=== PATIENT | male | born 1955 | race Caucasian/White ===

== ENCOUNTER 2024-03-04 05:49 | Inpatient (IN) ==
--- NOTE | 2024-03-04 06:06 | Emergency Department Note ---
Impression & Plan Chest pain, ST elevation myocardial infarction (STEMI) ED Provider Note ED Provider Note NAME: EDUIN NORIEGA AGE:68 SEX: Male : 1955 ARRIVES VIA: EMS INFORMANT: Patient ED PROVIDER(s): Angélica Amador DO CHIEF COMPLAINT: Chest pain HPI: This is a 68 yo male brought by EMS due to concern for chest pain. EMS concerned prehospital due to abnormal EKG reads additionally. VS stable enroute. On arrival patient c/o chest pain, dizziness, nausea, and vomited en route. He initially blamed this on "car sickness" and the nitro and ASA he was given by EMS. He denied sob. No prior similar episodes. He reported chest pain woke him up from sleep, no change with position or exertion, and otherwise nonradiating. No hx of heart problems. No hx of recent illness or fevers/chills. No recent GERD. PAST MEDICAL HISTORY:See Below PAST SURGICAL HISTORY:See Below FAMILY HISTORY:See Below SOCIAL HISTORY:See Below HOME MEDICATIONS:See Below ALLERGIES:See Below VITALS:See Below PHYSICAL EXAMINATION: GENERAL: alert, unwell appearing, well nourished, moderate distress, non-toxic EYE EXAM: normal conjunctiva, PERRL and EOM's grossly intact OROPHARYNX: no exudate, no erythema, lips, buccal mucosa, and tongue normal and mucous membranes are moist NECK: supple, no nuchal rigidity, no adenopathy, non-tender LUNGS: Clear to auscultation. Normal chest wall mechanics, no w/r/r, no reproducible pain with palpation HEART: no murmurs, S1 normal and S2 normal ABDOMEN: abdomen soft, non-tender, normo-active bowel sounds, no masses, no rebound or guarding. BACK: Back is symmetrical on inspection and there is no deformity, no midline tenderness, no CVA tenderness. SKIN: no rashes, petechiae, orbruising UPPER EXTREMITIES: upper extremities are grossly normal. FROM, nml pulses b/l. LOWER EXTREMITIES: No pitting edema. FROM, nml pulses b/l. NEURO EXAM: Normal sensorium, cranial nerves II-XII grossly intact, normal speech, no facial droop,nogross weakness of arms, no gross weakness of legs. Gross sensation intact. No ataxia. Vital Signs: reviewed and remarkable Differential Diagnosis: acute coronary syndrome, pericarditis, pulmonary embolus, aortic dissection, pneumonia, pneumothorax, musculoskeletal pain, shingles, GERD, GI bleed, as well as others were considered MEDICAL DECISION MAKING: THis is a 68 yo male who presents to the ER with concern for chest pain and abnormal EKG noted by EMS. Patient unwell appearing on arrival and had begun to vomit. EKG performed here with inferior ST elevated and reciprocal changes, HEART alert called. Labs drawn and sent, IV established, EKG and CXR performed and interpreted at bedside, and patient placed on telemetry. He was started on IVF and given IV pepcid, IV fentanyl and after discussion with Dr. Saldana given heparin and brilinta additionally. VS stable although patient noted to be bradycardic. Patient stated he does bike 10 miles daily and initial thought was bradycardia related to mildly to conditioning however bradycardia began to worsen and I suspect related to his evolving inferior [place]. His blood pressure remained stable while awaiting sugar laboratory assistant team. Dr. Saldana arrived at bedside to evaluate the patient and he was taken urgently to the sugar laboratory assistant. Consultation(s): 06: Discussed with Dr. Saldana via text after heart alert called. 06: Discussed with Dr. Saldana now at bedside. ER Treatment Provided: See below Diagnostics Interpreted By Me: -ECG: Sinus bradycardia at 55 with first-degree AV block, normal axis, normal intervals, appearance of [address] elevation in lead III and aVF with T wave inversions/ST depression noted in 1, aVL, V2, and V4 through V6; new compared to prior EKG from 2019 -Cardiac Monitoring: An order was placed for continuous cardiac monitoring. The monitor shows a rate of 48 with sinsu bradycardia rhythm. -Laboratory studies: As stated above and show below. -Imaging studies: X-ray Chest: A single view study of the chest was reviewed and was negative for cardiomegaly, focal infiltrate, effusion, pulmonary edema, or wide mediastinum. Triage Nursing Note Reviewed Prior/Outside Records Reviewed Critical Care: Critical care of 36min performed to assess and manage high likelihood of life- threatening ACS, involving labs and imaging performed with assessment to evaluate chest pain diagnosis with frequent reassessment. This time includes bedside time, treatment discussions with patient/family/consultants, documentation time and excludes procedure time. Past Med/Surg History Problem List (Updated 03/04/24 @ 12:58 by Raymond Walker MD) Urinary retention ST elevation myocardial infarction (STEMI) (Acute) Chest pain (Acute) Medical History (Updated 03/04/24 @ 12:58 by Raymond Walker MD) Asthma Hypothyroidism Surgical History (Updated 03/04/24 @ 09:40 by Irina Rosales PA-C) H/O adenoidectomy H/O prostatectomy Family History Other Heart disease Pancreatic cancer Social History Smoking Status: Never smoker Hx Alcohol Use: No Hx Substance Use: No Preferred Language: Yi Communication Ability: Effective Beef Grader Required: No Beliefs That Will Affect Care: None Current Living Situation: Spouse Feels Safe at Home: Yes Assistive Devices: None and Glasses Allergies Allergies Allergy/AdvReac Type Severity Reaction Status Date / Time No Known Allergies Allergy Mild Unverified 02/02/24 14:32 Home Meds Home Medications Medication Instructions Recorded Confirmed famotidine 20 mg tablet (Pepcid) 20 mg PO HS 03/04/24 03/04/24 fluticasone furoate 100 1 inh inhalation DAILY 03/04/24 03/04/24 mcg-vilanterol 25 mcg/dose inhalation powder (Breo Ellipta) pantoprazole 40 mg tablet,delayed 40 mg PO DAILY 03/04/24 03/04/24 release Results & Data (ED) Vital Signs Vital Signs - 24 hr 03/04/24 05:58 03/04/24 06:01 03/04/24 06:01 Temperature Source Oral Pulse Rate 58 L Pulse Rate from SpO2 Sensor Respiratory Rate Respiratory Effort / Characteristics Blood Pressure [Left Arm] 105/61 Blood Pressure Mean [Left Arm] 75 Pulse Oximetry Oxygen Delivery Method Oxygen Flow Rate Sepsis Recent Fever Within 48 Hours No Sepsis New/Unexplained Change in Mental Status No Sepsis Action Taken by Nursing No Action Required 03/04/24 06:06 03/04/24 06:07 03/04/24 06:22 Temperature Source Pulse Rate 53 L Pulse Rate from SpO2 Sensor 54 L Respiratory Rate 20 Respiratory Effort / Characteristics Short of Breath SOB on Exertion Blood Pressure [Left Arm] Blood Pressure Mean [Left Arm] Pulse Oximetry 99 99 Oxygen Delivery Method Nasal Cannula Oxygen Flow Rate 1 Sepsis Recent Fever Within 48 Hours Sepsis New/Unexplained Change in Mental Status Sepsis Action Taken by Nursing Laboratory Data 03/05/24 03:08 03/05/24 03:08 Lab Results 03/04/24 03/04/24 03/04/24 Range/Units 05:45 06:00 06:55 WBC 8.73 (4.8-10.8) K/ul RBC 4.37 L (4.70-6.10) M/uL Hgb 13.5 L (14.0-18.0) g/dl Hct 39.5 L (42.0-52.0) % MCV 90.4 (80.0-100.0) fL MCH 30.9 (25.0-34.0) pg MCHC 34.2 (32.0-36.0) g/dL RDW Std Deviation 39.4 (36.4-46.3) fL RDW Coeff of Nadine 11.9 (11.5-14.5) % Plt Count 250 (130-400) K/uL MPV 10.3 (9.4-12.4) fL Immature Gran % (Auto) 0.1 % Neut % (Auto) 35.1 % Lymph % (Auto) 49.6 % [place] % (Auto) 10.1 % Eos % (Auto) 4.5 % Baso % (Auto) 0.6 % Neut # (Auto) 3.07 (1.40-6.50) K/uL Lymph # (Auto) 4.33 H (1.20-3.40) K/uL [place] # (Auto) 0.88 H (0.11-0.59) K/uL Eos # (Auto) 0.39 (0.00-0.50) K/uL Baso # (Auto) 0.05 (0.00-0.20) K/uL Immature Gran # (Auto) 0.01 (0.01-0.20) K/uL PT 10.5 (9.0-12.0) Seconds INR 1.0 (0.9-1.1) Activ Coag Time Kaolin 189 H (94-140) SECONDS Sodium 139 (136-145) mmol/L Potassium 3.7 (3.5-5.1) mmol/L Chloride 106 (98-107) mmol/L Carbon Dioxide 22 (21-32) mmol/L Anion Gap 11 (3-11) BUN 22 (6-23) mg/dl Creatinine 1.18 (0.6-1.4) mg/dl Est Cr Clr Drug Dosing 62.9 ml/min Est GFR ( Amer) 72.5 ml/min Est GFR (Non-Af Amer) 62.6 ml/min BUN/Creatinine Ratio 18.6 (10-20) Glucose 133 H (70-99(Fasting)) mg/dl Calcium 8.9 (8.6-10.3) mg/dl Magnesium 2.0 (1.7-2.4) mg/dl Total Bilirubin 0.4 (0.2-1.0) mg/dl AST 16 (13-39) U/L ALT 16 (7-52) U/L Alkaline Phosphatase 37 (34-104) U/L Troponin I High Sens 20.8 H (0-20) pg/ml Total Protein 6.1 (6.0-8.3) gm/dl Albumin 4.1 (3.4-5.0) gm/dl Globulin 2.0 L (2.5-4.0) gm/dl Albumin/Globulin Ratio 2.0 (0.9-2) Lipase 29 (11-82) U/L Administered Medications Aspirin (Aspirin 81 Mg Ectab) 81 mg PO [facility] Stop: 04/03/24 08:59 Last Admin: 03/05/24 09:01 Dose: 81 mg Documented By: Admin: 03/04/24 09:32 Dose: 81 mg Documented By: DEE Atorvastatin Calcium (Atorvastatin 40 Mg Tab) 80 mg PO [facility] Stop: 04/03/24 08:59 Last Admin: 03/05/24 09:01 Dose: 80 mg Documented By: Admin: 03/04/24 09:33 Dose: 80 mg Documented By: DEE Famotidine (Famotidine 20 Mg Tab) 20 mg PO [facility] Stop: 04/03/24 20:59 Last Admin: 03/05/24 21:33 Dose: 20 mg Documented By: Admin: 03/04/24 19:25 Dose: 20 mg Documented By: KELY Fluticasone/Vilanterol (Fluticasone/Vilanterol 100/25mcg 14 Puffs/Inhaler) 1 puffs INH DAILY [facility] Stop: 04/04/24 08:59 Last Admin: 03/05/24 09:01 Dose: 1 puffs Documented By: MIKE Metoprolol Tartrate (Metoprolol Tartrate 25 Mg Tab) 12.5 mg PO BID [facility] Stop: 04/04/24 20:59 Last Admin: 03/05/24 21:33 Dose: Not Given Documented By: GENIE Pantoprazole Sodium (Pantoprazole 40 Mg Tab) 40 mg PO QAM [facility] Stop: 04/03/24 08:59 Last Admin: 03/05/24 09:01 Dose: 40 mg Documented By: Admin: 03/04/24 09:33 Dose: 40 mg Documented By: DEE Ticagrelor (Ticagrelor 90 Mg Tab) 90 mg PO BID [facility] Stop: 04/03/24 20:59 Last Admin: 03/05/24 21:32 Dose: 90 mg Documented By: Admin: 03/05/24 09:00 Dose: 90 mg Documented By: Admin: 03/04/24 19:25 Dose: 90 mg Documented By: KELY Discontinued Medications Fentanyl Citrate (Fentanyl Citrate Pf 100 Mcg/2 Ml Vial) 50 mcg IV Q15M PRN PRN Reason: Pain Stop: 03/18/24 06:21 Last Admin: 03/04/24 06:29 Dose: 50 mcg Documented By: FERN Fentanyl Citrate (Fentanyl Citrate Pf 100 Mcg/2 Ml Vial) Confirm Administered Dose 100 mcg .ROUTE .STK-MED ONE Stop: 03/04/24 06:24 Last Increment: 03/04/24 07:23 Dose: 25 mcg Documented By: MARIA INES Heparin Sodium (Porcine) (Heparin Sod (Porcine) 1000 Unit/Ml) 5,000 units IV NOW ONE Stop: 03/04/24 06:05 Last Admin: 03/04/24 06:10 Dose: 5,000 units Documented By: ROSIO Co-signed By: SERA Heparin Sodium (Porcine) (Heparin (Porcine) 1000 Unit/Ml 10 Ml (Inflated Pad Buffer Use Only)) Confirm Administered Dose 10,000 units .ROUTE .STK-MED ONE Stop: 03/04/24 06:23 Last Admin: 03/04/24 07:22 Dose: 9,000 units Documented By: MARIA INES Heparin Sodium/Sodium Chloride (Heparin In Nss Infusion 1000 Unit/500 Ml (2 U/Ml) Bag) Confirm Administered Dose 3,000 units IV .STK-MED ONE Stop: 03/04/24 06:24 Last Admin: 03/04/24 07:00 Dose: 3,000 units Documented By: GUY Sodium Chloride (Nss) 1,000 mls @ 125 mls/hr IV .Q8H [facility] Stop: 04/03/24 06:14 Last Infusion: 03/04/24 10:09 Dose: Infused Documented By: Admin: 03/04/24 08:35 Dose: 125 mls/hr Documented By: DEE Parenteral Electrolytes (Plasma-Lyte A Ph 7.4) 1,000 mls @ 125 mls/hr IV .Q8H [facility] Stop: 04/03/24 09:59 Last Infusion: 03/04/24 19:13 Dose: Infused Documented By: Admin: 03/04/24 19:12 Dose: Not Given Documented By: Infusion: 03/04/24 12:54 Dose: 0 mls/hr Documented By: Admin: 03/04/24 10:10 Dose: 125 mls/hr Documented By: DEE Iodixanol (Iodixanol (Visipaque) 320 Mg/Ml 100ml) Confirm Administered Dose 1 ml IV .STK-MED ONE Stop: 03/04/24 06:25 Last Admin: 03/04/24 07:02 Dose: Not Given Documented By: MARIA INES Ioversol (Optiray 350) Confirm Administered Dose 1 ml .ROUTE .STK-MED ONE Stop: 03/04/24 06:25 Last Admin: 03/04/24 07:24 Dose: 95 ml Documented By: GUY Lidocaine HCl (Lidocaine 2% Jelly 5 Ml Tube) Confirm Administered Dose 5 ml EXT .STK-MED ONE Stop: 03/04/24 13:33 Last Admin: 03/04/24 18:49 Dose: Not Given Documented By: KEYL Midazolam HCl (Midazolam Hcl 1 Mg/Ml 2ml Vial) Confirm Administered Dose 2 mg .ROUTE .STK-MED ONE Stop: 03/04/24 06:23 Last Increment: 03/04/24 07:23 Dose: 1 mg Documented By: MARIA INES Miscellaneous (Icu Protocol For Hyperglycemia) 1 each N/A ACHS [facility] Stop: 03/06/24 07:29 Last Admin: 03/05/24 12:37 Dose: Not Given Documented By: Admin: 03/05/24 07:40 Dose: Not Given Documented By: Admin: 03/04/24 19:15 Dose: Not Given Documented By: Admin: 03/04/24 16:15 Dose: Not Given Documented By: Admin: 03/04/24 11:45 Dose: Not Given Documented By: Admin: 03/04/24 09:32 Dose: Not Given Documented By: DEE Nicardipine HCl (Nicardipine Hcl Inj 2.5 Mg/Ml 10 Ml Amp) Confirm Administered Dose 25 mg .ROUTE .STK-MED ONE Stop: 03/04/24 06:24 Last Admin: 03/04/24 07:01 Dose: 25 mg Documented By: GUY Nitroglycerin/Dextrose (Nitroglycerin/D5w 100mcg/Ml 20ml Syr) Confirm Administered Dose 2,000 mcg .ROUTE .STK-MED ONE Stop: 03/04/24 06:24 Last Admin: 03/04/24 07:01 Dose: 2,000 mcg Documented By: GUY Norepinephrine Bitartrate (Norepinephrine/D5w 4 Mg/250 Ml) Confirm Administered Dose 4 mg IV .STK-MED ONE Stop: 03/04/24 06:53 Last Admin: 03/04/24 07:25 Dose: 4 mg Documented By: MARIA INES Ondansetron HCl (Ondansetron Inj 2 Mg/Ml 2 Ml Vial) 4 mg IV NOW STA Stop: 03/04/24 06:06 Last Admin: 03/04/24 06:10 Dose: 4 mg Documented By: ROSIO Ondansetron HCl (Ondansetron Inj 2 Mg/Ml 2 Ml Vial) 4 mg IV ONE ONE Stop: 03/04/24 08:01 Last Admin: 03/04/24 09:35 Dose: 4 mg Documented By: BRIAN Ondansetron HCl (Ondansetron Inj 2 Mg/Ml 2 Ml Vial) 4 mg IV ONE ONE Stop: 03/04/24 08:02 Last Admin: 03/04/24 08:01 Dose: 4 mg Documented By: MARIA INES Potassium Chloride (Potassium Chloride Crtab 20 Meq Tabcr) 40 meq PO NOW STA Stop: 03/04/24 14:37 Last Admin: 03/04/24 14:45 Dose: 40 meq Documented By: DEE Ticagrelor (Ticagrelor 90 Mg Tab) 180 mg PO ONE ONE Stop: 03/04/24 06:04 Last Admin: 03/04/24 06:30 Dose: 180 mg Documented By: FERN Ticagrelor (Ticagrelor 90 Mg Tab) 180 mg PO ONE ONE Stop: 03/04/24 08:01 Last Admin: 03/04/24 08:00 Dose: 180 mg Documented By: MARIA INES Discharge Plan Visit Data Chief Complaint: Chest Pain Stated Complaint: CHEST PAIN ED Provider: Angélica Amador Discharge Problem: Chest pain, ST elevation myocardial infarction (STEMI) Patient Disposition: Admitted As Inpatient Discharge Instructions Interventions: ED Discharge Assessment Last Done: 03/04/24 06:30
[2024-03-04] MEDS: HEPARIN SOD (PORCINE) 1000 UNIT/ML IV ONE (06:10)
[2024-03-04] MEDS: ONDANSETRON INJ 2 MG/ML 2 ML VIAL IV STA (06:10)
[2024-03-04 06:16] LABS: Basophils # (auto) 0.05 K/uL (0.00-0.20); Basophils % (auto) 0.6 %; Eosinophils # (auto) 0.39 K/uL (0.00-0.50); Eosinophils % (auto) 4.5 %; Hematocrit (blood only) 39.5 % (42.0-52.0); Hemoglobin 13.5 g/dl (14.0-18.0); Immature Granulocytes # (auto) 0.01 K/uL (0.01-0.20); Immature Granulocytes % (auto) 0.1 %; Lymphocytes # (auto) 4.33 K/uL (1.20-3.40); Lymphocytes % (auto) 49.6 %; Mean Corpuscular Hemoglobin 30.9 pg (25.0-34.0); Mean Corpuscular Hgb Conc 34.2 g/dL (32.0-36.0); Mean Corpuscular Volume 90.4 fL (80.0-100.0); Mean Platelet Volume 10.3 fL (9.4-12.4); Monocytes # (auto) 0.88 K/uL (0.11-0.59); Monocytes % (auto) 10.1 %; Neutrophils # (auto) 3.07 K/uL (1.40-6.50); Neutrophils % (auto) 35.1 %; Platelet Count 250 K/uL (130-400); RDW Coefficient of Variation 11.9 % (11.5-14.5); RDW Standard Deviation 39.4 fL (36.4-46.3); Red Blood Count 4.37 M/uL (4.70-6.10); White Blood Count 8.73 K/ul (4.8-10.8)
[2024-03-04 06:25] LABS: Prothrombin Time 10.5 Seconds (9.0-12.0)
[2024-03-04] MEDS: fentaNYL citrate PF 100 MCG/2 ML VIAL IV PRN (06:29)
[2024-03-04] MEDS: TICAGRELOR 90 MG TAB PO ONE ×2 (06:30→08:00)
[2024-03-04 06:33] LABS: Albumin Level 4.1 gm/dl (3.4-5.0); BUN Creatinine Ratio 18.6 (10-20); Bilirubin,Total 0.4 mg/dl (0.2-1.0); Calcium 8.9 mg/dl (8.6-10.3); Creatinine Clr Calc Pharmacy 62.9 ml/min; Est GFR (African American) 72.5 ml/min; Est GFR (Non-African American) 62.6 ml/min; Potassium 3.7 mmol/L (3.5-5.1); Total Protein 6.1 gm/dl (6.0-8.3)
[2024-03-04 06:35] LABS: Troponin I High Sensitivity 20.8 pg/ml (0-20)
--- NOTE | 2024-03-04 06:37 | Pre Anesthesia Assessment ---
Date of Service March 04, 2024 Pre Sedation Assessment Vital Signs Temp Pulse Resp BP BP Pulse Ox O2 Del Method 03/04/24 06:27 43 L 16 104/56 L Room Air, Nasal Cannula 03/04/24 06:27 52 L 18 104/56 L 03/04/24 06:23 17 99/55 L 99 Nasal Cannula 03/04/24 06:15 50 L 96/54 L 99 Nasal Cannula 03/04/24 06:07 99 Nasal Cannula 03/04/24 06:06 53 L 20 99 03/04/24 06:01 97.7 F 105/61 03/04/24 05:58 58 L O2 Flow Rate 03/04/24 06:27 1 03/04/24 06:27 03/04/24 06:23 1 03/04/24 06:15 1 03/04/24 06:07 1 03/04/24 06:06 03/04/24 06:01 03/04/24 05:58 Cardiovascular + regular rate Respiratory + respiratory effort normal Pre-Sedation Airway Assessment Smoking Status: Never smoker Thyromental Distance: > or= 3.5 Finger Breadths Oral Cavity: + Dental Abnormalities Mallampati Class: III ASA: ASA4 Procedure Planning Contraindications for Sedation: none Current Medications Reviewed: Yes Notes The planned sedation has been discussed with the patient. Informed Consent was obtained. I have identified the patient, determined the appropriateness of sedation and have assessed the patient immediately prior to the procedure. All medicine(s) and interventions are by my order.
--- NOTE | 2024-03-04 06:37 | Cardiology Consultation ---
Date of Consultation March 04, 2024 Assessment & Plan (1) ST elevation myocardial infarction (STEMI): Presentation consistent with inferior STEMI and recommend proceeding with emergent cardiac catheterization and likely primary PCI. No apparent contraindications to procedure. Discussed risks, benefits, alternatives of procedure with patient and they are willing to proceed. Given IV heparin and ticagrelor 180 mg in the ED. Further recommendations pending findings of coronary angiography. History of Present Illness History of Present Illness Mr. Mccarthy is a very pleasant 68-year-old man here with acute chest pain and ECG concerning for acute OK. Patient seen emergently in the ED after heart alert activated on arrival. No significant pericardial history. Carries diagnosis of PVCs. Past medical history remarkable for GERD, asthma, hypothyroidism, BPH. He is very active at baseline, bikes more than 10 miles most days. Chest pain began approximately 430 this morning after waking from sleep. Describes pain radiating to jaw and elbows bilaterally with associated nausea/vomiting. Has intermittently had mild similar chest symptoms for weeks which he attributed to prior GERD. Ongoing severe chest pain at time of arrival. Bradycardic to 40s, hemodynamically stable. EKG showed inferior ST elevations with reciprocal changes. Allergies Allergy/AdvReac Type Severity Reaction Status Date / Time No Known Allergies Allergy Mild Unverified 02/02/24 14:32 Home Medications Medication Instructions Recorded Confirmed Type famotidine 20 mg tablet (Pepcid) 20 mg PO HS 03/04/24 03/04/24 History fluticasone furoate 100 1 inh inhalation DAILY 03/04/24 03/04/24 History mcg-vilanterol 25 mcg/dose inhalation powder (Breo Ellipta) pantoprazole 40 mg tablet,delayed 40 mg PO DAILY 03/04/24 03/04/24 History release Patient History Medical History (Updated 03/04/24 @ 12:58 by Raymond Walker MD) Asthma Hypothyroidism Surgical History (Updated 03/04/24 @ 09:40 by Irina Rosales PA-C) H/O adenoidectomy H/O prostatectomy Family History Other Heart disease Pancreatic cancer Social History Smoking Status: Never smoker Hx Alcohol Use: No Hx Substance Use: No Preferred Language: Micronesian Communication Ability: Effective Tank Truck Milk Receiver Required: No Beliefs That Will Affect Care: None Current Living Situation: Spouse Feels Safe at Home: Yes Assistive Devices: None and Glasses Review of Systems Review of Systems: Not completed in the setting of emergency situation Physical Exam Physical Exam: General: Uncomfortable, pale HEENT: Sclerae anicteric Lungs: Clear to auscultation anteriorly Cardiac: Regular rate and rhythm, no murmurs. Vascular: 2+ radial Abdomen: Soft, nontender Extremities: Well perfused, no peripheral edema Neuro: Nonfocal Psych: Alert orient x3 Results & Data Vital Signs (Past 12 Hours) Vital Signs Temp Pulse Resp BP BP Pulse Ox O2 Del Method 03/04/24 06:27 43 L 16 104/56 L Room Air, Nasal Cannula 03/04/24 06:27 52 L 18 104/56 L 03/04/24 06:23 17 99/55 L 99 Nasal Cannula 03/04/24 06:15 50 L 96/54 L 99 Nasal Cannula 03/04/24 06:07 99 Nasal Cannula 03/04/24 06:06 53 L 20 99 03/04/24 06:01 97.7 F 105/61 03/04/24 05:58 58 L O2 Flow Rate 03/04/24 06:27 1 03/04/24 06:27 03/04/24 06:23 1 03/04/24 06:15 1 03/04/24 06:07 1 03/04/24 06:06 03/04/24 06:01 03/04/24 05:58 PG Care Time/CCT Total # of Minutes Spent Total Time Spent with Patient: Total time spent is greater than 50% in coordination of care (as documented) at patient's floor/unit and/or counseling patient: Coding Level of Care Code 39857 ER DEPT VISIT MOD LVL [address] elevation myocardial infarction (STEMI) I21.3
[2024-03-04] MEDS: niCARdipine HCL INJ 2.5 MG/ML 10 ML AMP ONE (07:01)
[2024-03-04] MEDS: NITROGLYCERIN/D5W 100MCG/ML 20ML SYR ONE (07:01)
[2024-03-04] MEDS: IODIXANOL (VISIPAQUE) 320 MG/ML 100ML IV ONE (07:02)
--- NOTE | 2024-03-04 07:04 | Communication Note ---
Date of Service: March 04, 2024 Requested by Agronomist nurse to enter ICU admit order for patient currently undergoing diagnostic cardiac catheterization following Heart Alert at the ER.
[2024-03-04] MEDS ORDERED: ACETAMINOPHEN 325 MG TAB PO PRN (07:20)
[2024-03-04] MEDS: HEPARIN (PORCINE) 1000 UNIT/ML 10 ML (CATH LAB USE ONLY) ONE (07:22)
[2024-03-04] MEDS: fentaNYL citrate PF 100 MCG/2 ML VIAL ONE (07:23)
[2024-03-04] MEDS: MIDAZOLAM HCL 1 MG/ML 2ML VIAL ONE (07:23)
[2024-03-04] MEDS: OPTIRAY 350 ONE (07:24)
[2024-03-04] MEDS: NOREPINEPHRINE/D5W 4 MG/250 ML IV ONE (07:25)
--- NOTE | 2024-03-04 07:27 | Post Anesthesia Assessment ---
Date of Service March 04, 2024 Post Sedation Assessment Vital Signs Temp Pulse Resp BP BP Pulse Ox O2 Del Method 03/04/24 06:27 43 L 16 104/56 L Room Air, Nasal Cannula 03/04/24 06:27 52 L 18 104/56 L 03/04/24 06:23 17 99/55 L 99 Nasal Cannula 03/04/24 06:15 50 L 96/54 L 99 Nasal Cannula 03/04/24 06:07 99 Nasal Cannula 03/04/24 06:06 53 L 20 99 03/04/24 06:01 97.7 F 105/61 03/04/24 05:58 58 L O2 Flow Rate 03/04/24 06:27 1 03/04/24 06:27 03/04/24 06:23 1 03/04/24 06:15 1 03/04/24 06:07 1 03/04/24 06:06 03/04/24 06:01 03/04/24 05:58 Recovery Score Activity: Moves 4 extremities Respiration: Deep Breath/Cough Circulation: +/-20% PreAnes Value Consciousness: Fully Awake Oxygen Saturation: O2 needed for >90% Discharge Sedation Level of Care: Fast Track Phase II Post Sedation Plan On clinical assessment, the patient appears to have tolerated the sedation without complications. Patient is recovering as anticipated. Patient will continue to be monitored by nursing and may be discharged when sedation discharge criteria are met per below protocol. Upon Completions of procedure up to 15 minutes continue every 5 minute vital signs and the P.A.R. score; then discharge to a Phase I or Fast Track to Phase II per the following guidelines: * Discharge Patient to appropriate Phase II area if PAR is 8 or greater or return to pre- procedure baseline. The post - procedure orders will be as directed. * If PAR score is less than 8 or not return to pre-procedure baseline then patient will follow Phase I monitoring till PAR is reached for Phase II. The Phase I may be done in procedure room or may call to secure a Phase I area. * If naloxone or flumazenil are used for reversal, hold in Phase I for continued monitoring from when last reversal dose was given for a minimum of 60 minutes or longer pending the nurse and/or physician discretion of patient condition before discharge to Phase II. Please call the Sedation Physician to re-evaluate and complete post-note for discharge to Phase II area. Do NOT discharge from procedure sedation or Phase 1 until post- sedation evaluation note is complete by procedure /sedation MD Sedation Discharge Instructions to be given to the patient at discharge to home.
--- NOTE | 2024-03-04 07:29 | Post Operative Brief Note ---
Cardiology Brief Post Op Date of Surgery March 04, 2024 Pre & Post Diagnosis STEMI Procedure Cardiac catheterization PCI of latemid RCA with single COBY Truss Puller Helper Germán Saldana MD [employer] [facility] Estimated Blood Loss 15 Findings Consistent with Post-Op Diagnosis 100% acute latemid RCA 50-60% mid circumflex 80% proximal D2 Course complicated by complete heart block and hypotension requiring norepinephrine weaned off by completion of procedure. Successful PCI of mid RCA with single COBY Medical management of residual CAD. Disposition Disposition: Surgical ICU Overlapping Procedure I was present for: the critical portions of procedure.
[2024-03-04] MEDS ORDERED: SODIUM CHLORIDE 0.9% 1,000 ML IV SCH (07:30)
--- NOTE | 2024-03-04 07:33 | XRay Report ---
XR chest 1V portable HISTORY: Atypical chest pain. COMPARISON: None. FINDINGS: The lungs are clear. Cardiac silhouette is normal in size. No pleural effusions. No pneumot horax. IMPRESSION: No acute process. ACT 112: Negative or not required by law. Electronically signed by: Johny Nash M.D. 03/04/2024 7:32 AM
[2024-03-04] MEDS ORDERED: TICAGRELOR 90 MG TAB PO ONE (08:00)
[2024-03-04] MEDS: ONDANSETRON INJ 2 MG/ML 2 ML VIAL IV ONE ×2 (08:01→09:35)
[2024-03-04] MEDS: SODIUM CHLORIDE 0.9% 1,000 ML IV SCH (08:35)
--- NOTE | 2024-03-04 09:20 | History & Physical Report ---
Date of Service March 04, 2024 Assessment & Plan (1) ST elevation myocardial infarction (STEMI): (2) Hypothyroidism: (3) Asthma: Plan This is a 68yo M with a PMH of asthma, hypothyroidism, PVCs, GERD, BPH and other medical problems listed below who presented as a heart alert and is s/p PCI COBY x 1. EKG in ED revealed sinus bradycardia at 55 with first-degree AV block, normal axis, normal intervals, and ST elevation in lead III and aVF with T wave inversions/ST depression noted in 1, aVL, V2, and V4 through V6; new compared to prior EKG from 2018. Heart alert was called and Dr. Saladna took to [facility]ason tender restoration labor where patient a single COBY placed to latemid RCA. STEMI S/p single COBY placed to latemid RCA In ICU overnight for monitoring Continue asa, statin, Brilinta BID, Toprol BID Trend trops and echo in AM per Dr. Saldana Asthma Stable, continue home inhalers GERD Continue PPI Code status: FULL PCP: Kasey Morales Dispo: admitted to ICU Patient seen in collaboration with Dr. Milan. Please see addendum. I spent a total of 75 minutes coordinating, documenting, and providing care for this patient excluding time spent in the performance of separately billed services. Admission and Anticipated Discharge Date Admission Date: March 04, 2024 History of Present Illness Chief Complaint: heart alert Primary Care Provider: Saman Morales, This is a 68yo M with a PMH of asthma, hypothyroidism, PVCs, GERD, BPH and other medical problems listed below who presented as a heart alert and is s/p PCI COBY x 1. Developed substernal chest pressure around 4:30am and came to ED for further evaluation. EKG in ED revealed sinus bradycardia at 55 with first-degree AV block, normal axis, normal intervals, and ST elevation in lead III and aVF with T wave inversions/ST depression noted in 1, aVL, V2, and V4 through V6; new compared to prior EKG from 2018. Heart alert was called and Dr. Saldana took to [facility] tender restoration labor where patient a single COBY placed to latemid RCA. Evaluated in 109-1 post procedure. Feeling well, without CP, SOB or nausea. No F/C, lightheadedness. Allergies Allergy/AdvReac Type Severity Reaction Status Date / Time No Known Allergies Allergy Mild Unverified 02/02/24 14:32 Home Medications Medication Instructions Recorded Confirmed Type famotidine 20 mg tablet (Pepcid) 20 mg PO HS 03/04/24 03/04/24 History fluticasone furoate 100 1 inh inhalation DAILY 03/04/24 03/04/24 History mcg-vilanterol 25 mcg/dose inhalation powder (Breo Ellipta) pantoprazole 40 mg tablet,delayed 40 mg PO DAILY 03/04/24 03/04/24 History release Past Med/Surg History Problem List (Updated 03/04/24 @ 12:58 by Raymond Walker MD) Urinary retention ST elevation myocardial infarction (STEMI) (Acute) Chest pain (Acute) Medical History (Updated 03/04/24 @ 12:58 by Raymond Walker MD) Asthma Hypothyroidism Surgical History (Updated 03/04/24 @ 09:40 by Irina Rosales PA-C) H/O adenoidectomy H/O prostatectomy Family History Other Heart disease Pancreatic cancer Social History Smoking Status: Never smoker Hx Alcohol Use: No Hx Substance Use: No Preferred Language: Qatari Communication Ability: Effective Tree Thinner Required: No Beliefs That Will Affect Care: None Current Living Situation: Spouse Feels Safe at Home: Yes Assistive Devices: None and Glasses Review of Systems Review of Systems: At least ten systems reviewed and negative except as noted in the HPI. Physical Exam Physical Exam: General Appearance: WD/WN, vitals as above, NAD, sitting up in bed, pleasant, conversing easily Head: normocephalic, atraumatic Eyes: normal inspection, PERRL, conjunctivae normal, anicteric sclerae ENT: external ear and nose normal, oropharynx normal Neck: normal visual inspection, trachea midline, no thyromegaly Respiratory: normal respiratory effort, lungs clear to auscultation, no wheeze, rales, rhonchi. No accessory muscle use Cardiovascular: regular rate, rhythm, no murmur, normal peripheral pulses, no BLE edema. Vessels: no JVD Chest: normal inspection of chest Abdomen/GI: normal bowel sounds, soft, nontender, no hepatosplenomegaly Extremities/Musculoskeletal: no cyanosis or clubbing, extremities motor strength 5/5, + R radial guard in place, no bleeding Neurologic: PERRL, EOMI, accommodation nl, no face palsy, no dysarthria, CN's II-XI intact bilaterally and moves all extremities Psychiatric: A+Ox3, euthymic affect Skin: no rashes, normal color, warm/dry Results & Data Results & Data Vital Signs (Past 12 Hours) Vital Signs Temp Pulse Pulse Resp BP BP Pulse Ox 03/04/24 09:00 62 20 103/63 99 03/04/24 08:30 95 H 21 102/68 03/04/24 08:15 72 19 105/60 99 03/04/24 08:00 82 16 103/74 99 03/04/24 08:00 36.5 C 71 14 101/58 L 100 03/04/24 07:38 71 16 102/56 L 98 03/04/24 07:28 72 16 102/55 L 98 03/04/24 06:27 43 L 16 104/56 L 03/04/24 06:27 52 L 18 104/56 L 03/04/24 06:23 17 99/55 L 99 03/04/24 06:15 50 L 96/54 L 99 03/04/24 06:07 99 03/04/24 06:06 53 L 20 99 03/04/24 06:01 36.5 C 105/61 03/04/24 05:58 58 L O2 Del Method O2 Flow Rate 03/04/24 09:00 Room Air 03/04/24 08:30 Room Air 03/04/24 08:15 Room Air 03/04/24 08:00 Room Air 03/04/24 08:00 Room Air 03/04/24 07:38 Room Air 03/04/24 07:28 Room Air 03/04/24 06:27 Room Air, Nasal Cannula 1 03/04/24 06:27 03/04/24 06:23 Nasal Cannula 1 03/04/24 06:15 Nasal Cannula 1 03/04/24 06:07 Nasal Cannula 1 03/04/24 06:06 03/04/24 06:01 03/04/24 05:58 Laboratory Results Short CBC 03/04/24 Range/Units 05:45 WBC 8.73 (4.8-10.8) K/ul Hgb 13.5 L (14.0-18.0) g/dl Hct 39.5 L (42.0-52.0) % Plt Count 250 (130-400) K/uL BMP 03/04/24 05:45 Sodium 139 Potassium 3.7 Chloride 106 Carbon Dioxide 22 BUN 22 Creatinine 1.18 Glucose 133 H Calcium 8.9 Liver Function 03/04/24 Range/Units 05:45 Total Bilirubin 0.4 (0.2-1.0) mg/dl AST 16 (13-39) U/L ALT 16 (7-52) U/L Alkaline Phosphatase 37 (34-104) U/L Albumin 4.1 (3.4-5.0) gm/dl Diagnostic Findings Chest X-Ray 03/04/24 05:59 XR chest 1V portable HISTORY: Atypical chest pain. COMPARISON: None. FINDINGS: The lungs are clear. Cardiac silhouette is normal in size. No pleural effusions. No pneumothorax. IMPRESSION: No acute process. ACT 112: Negative or not required by law. Electronically signed by: Johny Nash M.D. 03/04/2024 7:32 AM Code Status & VTE Plan VTE Prophylaxis Plan VTE Prophylaxis will be ordered: Yes Supervising Physician Co-Signing Physician Notes Pt was seen and examined by myself, Dorene Milan MD on the day of service. Care was coordinated with ELYSE Dubose seen after stent placement in the ICU for STEMI with Interventional cardiology. Cardiac cath noting 100% occlusion of mid RCA, 50-60% occlusion of the mid circumflex and 80% proximal D2 s/p PCI of mid RCA with single drug eluting stent, medical management of residual CAD. Per nursing, pt also having difficulty urinating post cath. On exam, alert, oriented, no acute distress. States chest pain resolved. RRR, breath sounds clear bilaterally, no noted extremity swelling. STEMI-Continue with metoprolol, aspirin, Brillinta, atorvastatin at this time. Continue monitoring in the ICU. Appreciate further cardiology recs. Urinary retention: Bladder scan, check PVR after each void, consider urinary catheter. Urology consulted, appreciate further recs. Otherwise as above. I spent a total [id number] coordinating, documenting, and providing care for this patient excluding time spent in the performance of separately billed services
[2024-03-04] MEDS: ICU Protocol for HYPERglycemia SCH (09:32)
[2024-03-04] MEDS: ASPIRIN 81 MG ECTAB PO SCH (09:32)
[2024-03-04] MEDS: PANTOprazole 40 MG TAB PO SCH (09:33)
[2024-03-04] MEDS: ATORVASTATIN 40 MG TAB PO SCH (09:33)
--- NOTE | 2024-03-04 09:50 | Critical Care Consultation ---
Date of Consultation March 04, 2024 Assessment & Plan (1) ST elevation myocardial infarction (STEMI): Status post drug-eluting stent x 1 to the mid RCA. Continue goal-directed therapy with dual antiplatelets, high-dose statin and beta-lesly as heart rate and blood pressure allows. Monitor on telemetry. Follow troponins and echocardiogram. (2) Urinary retention: Patient with urinary retention likely secondary to BPH and medications he received for sedation. Will consult urology for assistance. Plan Patient will be monitored in the ICU closely for the next 24 hours and likely downgraded tomorrow. History of Present Illness Reason for Consultation: 68-year-old male who presented to the hospital with chest pain Attending Physician: Dorene Milan MD History of Present Illness 68-year-old male who presented to the hospital with chest pain and received a drug-eluting stent x 1 to the RCA. There was also 80% proximal D2 disease and 50 to 60% mid circumflex disease. He was bradycardic and hypotensive on arrival with improvement of symptoms status post cath. He is currently on IV fluids per cardiology. He has had trouble with voiding and is requiring a straight cath. He is currently on goal-directed therapy with dual antiplatelets, high-dose statin and beta-lesly. Chest x-ray on admission was clear. Allergies Allergy/AdvReac Type Severity Reaction Status Date / Time No Known Allergies Allergy Mild Unverified 02/02/24 14:32 Home Medications Medication Instructions Recorded Confirmed Type famotidine 20 mg tablet (Pepcid) 20 mg PO HS 03/04/24 03/04/24 History fluticasone furoate 100 1 inh inhalation DAILY 03/04/24 03/04/24 History mcg-vilanterol 25 mcg/dose inhalation powder (Breo Ellipta) pantoprazole 40 mg tablet,delayed 40 mg PO DAILY 03/04/24 03/04/24 History release Patient History Medical History (Updated 03/04/24 @ 12:58 by Raymond Walker MD) Asthma Hypothyroidism Surgical History (Updated 03/04/24 @ 09:40 by Irina Rosales PA-C) H/O adenoidectomy H/O prostatectomy Family History Other Heart disease Pancreatic cancer Social History Smoking Status: Never smoker Hx Alcohol Use: No Hx Substance Use: No Preferred Language: Japanese Communication Ability: Effective Funeral Car Chauffeur Required: No Beliefs That Will Affect Care: None Current Living Situation: Spouse Other Information That Helps Us Care for You: No Feels Safe at Home: Yes Safety Concerns: Feels Safe At This Time Assistive Devices: None and Glasses Review of Systems Review of Systems: All systems reviewed & are unremarkable except as noted in HPI & below Physical Exam Physical Exam: Constitutional: Patient appears to be of their stated age. Patient is in no apparent distress. Patient is well-developed. Eyes: Pupils are equal round and reactive to light. Conjunctivae are normal. Anicteric sclera. Ears nose, mouth and throat: Mallampati class 2. Normal posterior oropharynx. Uvula is midline. Neck: Trachea is midline. Visual inspection is normal. Respiratory: Clear to auscultation bilaterally. No use of accessory muscles. No significant clubbing noted. Cardiovascular: Regular rate and rhythm. No murmurs. No edema. Gastrointestinal: Normal bowel sounds, soft, nontender and nondistended. No hepatosplenomegaly noted. Musculoskeletal: No cyanosis. Patient is able to move all extremities. Strength is 5 out of 5 in the upper and lower extremities. Skin: No rashes, warm dry and intact. Neurologic: No obvious focal neurological deficits seen. Psychiatric: Alert and oriented x3 with a euthymic affect. Results & Data Results & Data Vital Signs (Past 12 Hours) Vital Signs Temp Pulse Pulse Resp BP BP Pulse Ox 03/04/24 09:00 62 20 103/63 99 03/04/24 08:30 95 H 21 102/68 03/04/24 08:15 72 19 105/60 99 03/04/24 08:00 82 16 103/74 99 03/04/24 08:00 36.5 C 71 14 101/58 L 100 03/04/24 07:38 71 16 102/56 L 98 03/04/24 07:28 72 16 102/55 L 98 03/04/24 06:27 43 L 16 104/56 L 03/04/24 06:27 52 L 18 104/56 L 03/04/24 06:23 17 99/55 L 99 03/04/24 06:15 50 L 96/54 L 99 03/04/24 06:07 99 03/04/24 06:06 53 L 20 99 03/04/24 06:01 36.5 C 105/61 03/04/24 05:58 58 L O2 Del Method O2 Flow Rate 03/04/24 09:00 Room Air 03/04/24 08:30 Room Air 03/04/24 08:15 Room Air 03/04/24 08:00 Room Air 03/04/24 08:00 Room Air 03/04/24 07:38 Room Air 03/04/24 07:28 Room Air 03/04/24 06:27 Room Air, Nasal Cannula 1 03/04/24 06:27 03/04/24 06:23 Nasal Cannula 1 03/04/24 06:15 Nasal Cannula 1 03/04/24 06:07 Nasal Cannula 1 03/04/24 06:06 03/04/24 06:01 03/04/24 05:58 Coding Level of Care Code 36899 IN/OBS CONSULT LVL 4,60M Diagnoses ST elevation myocardial infarction (STEMI) I21.3 Urinary retention R33.9
[2024-03-04] MEDS: PLASMA-LYTE A 1,000 ML IV SCH (10:10)
[2024-03-04] MEDS: POTASSIUM CHLORIDE CRTAB 20 MEQ TABCR PO STA (14:45)
--- NOTE | 2024-03-04 15:27 | Urology Consultation ---
Date of Consultation March 04, 2024 Assessment & Plan (1) Urinary retention: Plan 68 yo/M admitted to the ICU after NE s/p stent x 1. He is on dual antiplatelet therapy. Urology was consulted as patient had developed difficulty voiding/urinary retention. Patient was able to void x 2 since the initial bladder scan and catheter attempts. His PVR is now 328ml. He does have a hx of what sounds like a TURP approx 15 years ago and based on the catheter attempts by nursing staff, it sounds like he could have a possible stricture. Since he is able to void, residual has improved and he is not having any symptoms of retention, we will continue to monitor closely. The patient is agreeable and prefers continued monitoring for now. If he develops symptoms of retention and/or high PVRs, we can revisit catheter placement. Continue to monitor ability to void and bladder scan/PVR, nursing aware. Urology will follow along. Plan of care reviewed with Dr. Dickerson, on-call urologist. History of Present Illness Attending Physician: Dorene Milan MD History of Present Illness 68-year-old male who presented to the ED with chest pain and is status post drug-eluting stent x 1 to the mid RCA. He is admitted to the ICU. He is on aspirin and Brilinta. Urology was consulted for urinary retention. Patient was noted to have difficulty with urination and bladder scanned for residual of 617ml. Nursing staff attempted catheter placement with a 16Fr Florez and a 16Fr coud catheter, however this was unsuccessful. Per nursing, both attempts were met with resistance at the distal/mid urethra. After some time, patient was able to spontaneously void x2. PVR was obtained and improved at 328ml. Patient was seen at bedside in the ICU. Awake, resting in bed on arrival. Resting comfortably. No acute distress. Family at bedside. He denied any suprapubic pain or pressure. Denied hematuria or dysuria. He does report a history of what sounds like a TURP approximately 15 years ago. He is not on any urinary medications currently. At baseline, he does report a slow weak stream. Nocturia 3. Some hesitancy. Feels he is emptying well for the most part but takes time. Some occasional leakage/dribbling. Allergies Allergy/AdvReac Type Severity Reaction Status Date / Time No Known Allergies Allergy Mild Unverified 02/02/24 14:32 Home Medications Medication Instructions Recorded Confirmed Type famotidine 20 mg tablet (Pepcid) 20 mg PO HS 03/04/24 03/04/24 History fluticasone furoate 100 1 inh inhalation DAILY 03/04/24 03/04/24 History mcg-vilanterol 25 mcg/dose inhalation powder (Breo Ellipta) pantoprazole 40 mg tablet,delayed 40 mg PO DAILY 03/04/24 03/04/24 History release Patient History Medical History (Updated 03/04/24 @ 12:58 by Raymond Walker MD) Asthma Hypothyroidism Surgical History (Updated 03/04/24 @ 09:40 by Irina Rosales PA-C) H/O adenoidectomy H/O prostatectomy Family History Other Heart disease Pancreatic cancer Social History Smoking Status: Never smoker Hx Alcohol Use: No Hx Substance Use: No Preferred Language: Armenian Communication Ability: Effective Fuel Cell Repairer Required: No Beliefs That Will Affect Care: None Current Living Situation: Spouse Feels Safe at Home: Yes Assistive Devices: None and Glasses Review of Systems Review of Systems: All systems reviewed & are unremarkable except as noted in HPI & below Physical Exam Constitutional: no acute distress Respiratory: no respiratory distress and no labored breathing Gastrointestinal (Abdomen): Percussion/Palpation: abdomen soft; abdomen nontender Neurologic: moves all extremities and awake Psychiatric: A+Ox3, euthymic affect Results & Data Vital Signs (Past 12 Hours) Vital Signs Temp Pulse Pulse Resp BP BP Pulse Ox 03/04/24 13:57 46 L 13 104/64 98 03/04/24 13:00 57 L 14 97/64 L 97 03/04/24 11:57 51 L 19 94/49 L 97 03/04/24 11:00 56 L 20 96/60 L 99 03/04/24 10:00 58 L 18 100/65 99 03/04/24 09:30 58 L 18 100/61 99 03/04/24 09:00 69 14 103/63 98 03/04/24 09:00 62 20 103/63 99 03/04/24 08:30 95 H 21 102/68 03/04/24 08:15 72 19 105/60 99 03/04/24 08:00 82 16 103/74 99 03/04/24 08:00 36.5 C 71 14 101/58 L 100 03/04/24 07:38 71 16 102/56 L 98 03/04/24 07:28 72 16 102/55 L 98 03/04/24 06:27 43 L 16 104/56 L 03/04/24 06:27 52 L 18 104/56 L 03/04/24 06:23 17 99/55 L 99 03/04/24 06:15 50 L 96/54 L 99 03/04/24 06:07 99 03/04/24 06:06 53 L 20 99 03/04/24 06:01 36.5 C 105/61 03/04/24 05:58 58 L O2 Del Method O2 Flow Rate 03/04/24 13:57 Room Air 03/04/24 13:00 Room Air 03/04/24 11:57 Room Air 03/04/24 11:00 Room Air 03/04/24 10:00 Room Air 03/04/24 09:30 Room Air 03/04/24 09:00 Room Air 03/04/24 09:00 Room Air 03/04/24 08:30 Room Air 03/04/24 08:15 Room Air 03/04/24 08:00 Room Air 03/04/24 08:00 Room Air 03/04/24 07:38 Room Air 03/04/24 07:28 Room Air 03/04/24 06:27 Room Air, Nasal Cannula 1 03/04/24 06:27 03/04/24 06:23 Nasal Cannula 1 03/04/24 06:15 Nasal Cannula 1 03/04/24 06:07 Nasal Cannula 1 03/04/24 06:06 03/04/24 06:01 03/04/24 05:58 PG Care Time/CCT Total # of Minutes Spent Total Time Spent with Patient: Total time spent is greater than 50% in coordination of care (as documented) at patient's floor/unit and/or counseling patient: Coding Level of Care Code 77414 INT INP/OBS CARE 2/55MIN Diagnoses Urinary retention R33.9
--- NOTE | 2024-03-04 17:29 | Cardiac Catheterization ---
[facility] Data: [employer] Cardiac Status Clinical evaluation leading to the procedure CAD Presenation: STEMI Anginal Classification: CCS IV Diagnostic Physicians Name: Germán Saldana MD Closure Device Recommendations: PCI without planned CABG Cardiac Cath Procedure Full Procedure Date March 04, 2024 Pre-Procedure Diagnosis Pre-Procedure Diagnosis: STEMI AUC Score AUC Score: 9 Post-Procedure Diagnosis Post-Procedure Diagnosis: Severe CAD, Successful PCI and Normal Intracardiac Pressures Procedure(s) Performed Procedure(s) Performed: Coronary Angiography, Left Heart Cath and Drug Eluting Stent Pressure Testing Technician Germán Saldana MD Pre Assembly Wirer(s) Kirstin Estimated Blood Loss Estimated Blood Loss: 15 Medication(s) Medication(s): Atropine, Fentanyl, Heparin, Lidocaine 1%, Nicardipine, Nitroglycerin and Versed Medication(s): Ticagrelor Summary of Findings Indication: STEMI/Heart Alert Access: 6 Fr slender right radial artery Catheters: [place], JR4 guide, JL 3.5, pigtail Findings: LM -normal caliber, no significant disease LAD -medium caliber, mid segment myocardial bridging, distal vessel small without significant disease and extends to the apex. 50% ostial, 80% proximal D3. Circumflex -medium caliber, 50-60% proximal stenosis. 30% ostial smallmedium OM 2. 90% ostial into small left PLB RCA -dominant, medium caliber with mild diffuse mid segment disease before 100% acute latemid occlusion. LVEDP -9 -- PCI -- Antithrombotic therapy: Heparin, ticagrelor Procedure: RCA cannulated with JR4 guide [employer] 50 wire passed across lesion into distal vessel Mid RCA lesion predilated with 2.5 compliant balloon Dilated lesion stented with 2.75 x 18 mm [place] drug-eluting stent Stent post-dilated with 3.5 noncompliant balloon Post procedure DIANA 3 flow, stent well expanded with minimal residual stenosis and no apparent cardiac complications. With additional angioplasty patient became bradycardic with complete heart block and hypotensive requiring atropine, IV fluids and temporary norepinephrine infusion. Norepinephrine weaned off at completion of procedure. Arterial Closure: TR band Summary: 1. Inferior STEMI/acute 100% latemid RCA occlusion 2. Multivessel non-culprit coronary artery disease -5060% proximal circumflex 75% proximal D3 90% ostial small left PLB 3. Normal intracardiac filling pressure 4. Transient complete heart block, cardiogenic shock 5. Successful PCI of latemid RCA with single drug-eluting stent (2.75 x 18 mm [place]; postdilated with 3.5 NC). Recommendations: Admit to ICU for continued monitoring Reloaded with ticagrelor 180 mg in [employer] Professional Continue dual-antiplatelet therapy for at least 1 year. Trend troponins until peak, Check Echo Start beta-lesly/CHEYENNE as BP/heart rate allow High-dose statin Consult cardiac Rehab Recommend medical management of residual coronary artery disease. If recurrent anginal symptoms as an outpatient PCI of diagonal could be considered. Hemodynamics Rest Ao:: 88/37/56 Final Ao: 102/48/72 LV: 95/9 Recommendations Recommendations: PCI without planned CABG Specimens Specimens: None Radiation Exposure (mGy) 782 Contrast (mls) 95 Anesthesia Moderate 4772-1930 Procedural Complication(s) None Disposition ICU I attest to the content of the Intraoperative Record and any orders documented therein. Any exceptions are noted below. [facility] Card Cath Procedure Codes Cardiac Catheterization Procedure 1: Cardiovascular Cath Procedures: 46728 Coronaries and LHC (+/-LV) Moderate Sedation Procedure 1: Sedation/Anesthesia: 67588 Mod Sedation by the same physician;Init15 Min Child Age 5 & Up Procedure 2: Sedation/Anesthesia: 60819 Mod Sedation by the same physician; Ea [id number] Minutes Stenting Procedure 1: Cardiovascular Stent Procedures: 28368 Perc transluminal revascularization of acute sub/total occl, aMI PG Care Time/CCT Total # of Minutes Spent Total Time Spent with Patient: Total time spent is greater than 50% in coordination of care (as documented) at patient's floor/unit and/or counseling patient:
[2024-03-04] MEDS: LIDOCAINE 2% JELLY 5 ML TUBE EXT ONE (18:49)
[2024-03-04] MEDS: TICAGRELOR 90 MG TAB PO SCH (19:25)
[2024-03-04] MEDS: FAMOTIDINE 20 MG TAB PO SCH (19:25)
[2024-03-05 03:29] LABS: Basophils # (auto) 0.03 K/uL (0.00-0.20); Basophils % (auto) 0.3 %; Eosinophils # (auto) 0.08 K/uL (0.00-0.50); Eosinophils % (auto) 0.9 %; Hematocrit (blood only) 34.4 % (42.0-52.0); Hemoglobin 11.8 g/dl (14.0-18.0); Immature Granulocytes # (auto) 0.02 K/uL (0.01-0.20); Immature Granulocytes % (auto) 0.2 %; Lymphocytes # (auto) 1.64 K/uL (1.20-3.40); Lymphocytes % (auto) 17.7 %; Mean Corpuscular Hgb Conc 34.3 g/dL (32.0-36.0); Mean Corpuscular Volume 90.3 fL (80.0-100.0); Mean Platelet Volume 10.1 fL (9.4-12.4); Monocytes # (auto) 0.91 K/uL (0.11-0.59); Monocytes % (auto) 9.8 %; Neutrophils # (auto) 6.57 K/uL (1.40-6.50); Neutrophils % (auto) 71.1 %; Platelet Count 205 K/uL (130-400); RDW Coefficient of Variation 12.1 % (11.5-14.5); RDW Standard Deviation 39.9 fL (36.4-46.3); Red Blood Count 3.81 M/uL (4.70-6.10); White Blood Count 9.25 K/ul (4.8-10.8)
[2024-03-05 04:00] LABS: BUN Creatinine Ratio 15.3 (10-20); Calcium 8.2 mg/dl (8.6-10.3); Chol HDL Ratio 3.5 (0-5); Creatinine Clr Calc Pharmacy 59.5 ml/min; Est GFR (African American) 68.3 ml/min; Est GFR (Non-African American) 58.9 ml/min; Potassium 4.1 mmol/L (3.5-5.1)
[2024-03-05 07:04] LABS: Estimated Average Glucose 123 mg/dl; Hemoglobin A1C 5.9 % (4.5-5.6)
--- NOTE | 2024-03-05 07:27 | Hospitalist Progress Note ---
Date of Service March 05, 2024 Assessment & Plan (1) ST elevation myocardial infarction (STEMI): (2) Hypothyroidism: (3) Asthma: Plan Mr. Mccarthy is a 68yo M with a PMH of asthma, hypothyroidism, PVCs, GERD, BPH and other medical problems listed below who presented as a heart alert and is s/p PCI COBY x 1. EKG in ED revealed sinus bradycardia at 55 with first-degree AV block, normal axis, normal intervals, and ST elevation in lead III and aVF with T wave inversions/ST depression noted in 1, aVL, V2, and V4 through V6; new compared to prior EKG from 2019. Heart alert was called and Dr. Saldana took to experimental machining lab manager where patient a single COBY placed to latemid RCA. Patient's post cath course complicated by bradycardia and NSVT. Patient remains admitted for telemetry and medication titration. #NSVT #Inferior STEMI/acute 100% latemid RCA occlusion s/p COBY 03/05 #Multivessel coronary artery disease #Transient complete heart block, cardiogenic shock s/p Successful PCI of latemid RCA with single drug-eluting stent Remains in ICU, hypotensive and bradycardic overnight Pending ECHO this am Continue asa, Brilinta BID Continue statin Metoprolol as tolerated, limited 2/2 bradycardia Cardiolo #Normocytic anemia No signs of active bleed Anemia labs in am #Asthma Stable, continue home inhalers #GERD Continue PPI Code status: FULL PCP: Kasey Morales Dispo: downgrade to PCU Admission and Anticipated Discharge Date Admission Date: March 04, 2024 Subjective NAEO Patient reports feeling well and chest pain free. He denies any further urinary concern Runs of NSVT on monitor Physical Exam Constitutional: WD/WN, vitals as above Respiratory: normal respiratory effort, lungs clear to auscultation Cardiovascular: RRR, no murmur, no edema Gastrointestinal (Abdomen): normal bowel sounds, soft, nontender, no hepatosplenomegaly Results & Data Results & Data Vital Signs (Past 12 Hours) Vital Signs Temp Pulse Resp BP Pulse Ox 03/05/24 04:04 36.5 C 03/05/24 03:00 96/56 L 03/05/24 03:00 44 L 13 95 03/05/24 02:09 46 L 15 96 03/05/24 02:00 101/53 L 03/05/24 01:57 43 L 17 97 03/05/24 01:01 111/57 L 03/05/24 01:01 111/57 L 03/05/24 01:00 41 L 21 95 03/05/24 00:03 48 L 17 96 03/05/24 00:02 84/47 L 03/05/24 00:02 84/47 L 03/05/24 00:00 88/44 L 03/04/24 23:57 43 L 16 96 03/04/24 23:03 46 L 16 94 03/04/24 23:01 108/59 L 03/04/24 22:54 44 L 16 94 03/04/24 22:00 36.6 C 03/04/24 22:00 46 L 14 96 03/04/24 22:00 101/64 03/04/24 22:00 101/64 03/04/24 21:21 50 L 18 94 03/04/24 20:33 47 L 14 96 03/04/24 20:00 89/63 L 03/04/24 20:00 89/63 L 03/04/24 19:54 72 10 L 95 Laboratory Results Short CBC 03/05/24 Range/Units 03:08 WBC 9.25 (4.8-10.8) K/ul Hgb 11.8 L (14.0-18.0) g/dl Hct 34.4 L (42.0-52.0) % Plt Count 205 (130-400) K/uL BMP 03/05/24 03:08 Sodium 137 Potassium 4.1 Chloride 108 H Carbon Dioxide 24 BUN 19 Creatinine 1.24 Glucose 103 H Calcium 8.2 L Medications Administered Home Medications Medication Instructions Recorded Confirmed Last Taken famotidine 20 mg tablet (Pepcid) 20 mg PO HS 03/04/24 03/04/24 Unknown fluticasone furoate 100 1 inh inhalation DAILY 03/04/24 03/04/24 Unknown mcg-vilanterol 25 mcg/dose inhalation powder (Breo Ellipta) pantoprazole 40 mg tablet,delayed 40 mg PO DAILY 03/04/24 03/04/24 Unknown release Active Medications Generic Name Dose Route Start Last Admin Trade Name Freq PRN Reason Stop Dose Admin Aspirin 81 mg 03/04/24 09:00 03/04/24 09:32 Aspirin 81 Mg Ectab PO 04/03/24 08:59 81 mg QAM DAGO Administration Atorvastatin Calcium 80 mg 03/04/24 09:00 03/04/24 09:33 Atorvastatin 40 Mg Tab PO 04/03/24 08:59 80 mg QAM DAGO Administration Famotidine 20 mg 03/04/24 21:00 03/04/24 19:25 Famotidine 20 Mg Tab PO 04/03/24 20:59 20 mg HS DAGO Administration Parenteral Electrolytes 1,000 mls @ 125 mls/hr 03/04/24 10:00 03/04/24 19:13 Plasma-Lyte A Ph 7.4 IV 04/03/24 09:59 Infused .Q8H DAGO Infusion Miscellaneous 1 each 03/04/24 07:30 03/04/24 19:15 Icu Protocol For Hyperglycemia N/A 03/06/24 07:29 Not Given ACHS DAGO Pantoprazole Sodium 40 mg 03/04/24 09:00 03/04/24 09:33 Pantoprazole 40 Mg Tab PO 04/03/24 08:59 40 mg QAM DAGO Administration Ticagrelor 90 mg 03/04/24 21:00 03/04/24 19:25 Ticagrelor 90 Mg Tab PO 04/03/24 20:59 90 mg BID DAGO Administration
[2024-03-05] MEDS ORDERED: METOPROLOL TARTRATE 25 MG TAB PO SCH (09:00)
[2024-03-05] MEDS: FLUTICASONE/VILANTEROL 100/25MCG 14 PUFFS/INHALER INH SCH (09:01)
--- NOTE | 2024-03-05 09:41 | Critical Care Progress Note ---
Date of Service March 05, 2024 Assessment & Plan (1) ST elevation myocardial infarction (STEMI): Plan: Status post drug-eluting stent x 1 to the mid RCA. Continue goal-directed therapy with dual antiplatelets, high-dose statin and beta-lesly as heart rate and blood pressure allows. Monitor on telemetry. Follow troponins and echocardiogram. (2) Urinary retention: Plan: Patient with urinary retention likely secondary to BPH and medications he received for sedation. Urology consult noted. Appreciate their assistance. Plan Patient can likely be discharged home today or downgrade to the floor. Admission and Anticipated Discharge Date Admission Date: March 04, 2024 Subjective Patient feeling well. Denies any significant shortness of breath or chest pain. Hemodynamically stable. Review of Systems Review of Systems: All systems reviewed & are unremarkable except as noted in HPI & below Physical Exam Physical Exam: Constitutional: Patient appears to be of their stated age. Patient is in no apparent distress. Patient is well-developed. Eyes: Pupils are equal round and reactive to light. Conjunctivae are normal. Anicteric sclera. Ears nose, mouth and throat: Mallampati class 2. Normal posterior oropharynx. Uvula is midline. Neck: Trachea is midline. Visual inspection is normal. Respiratory: Clear to auscultation bilaterally. No use of accessory muscles. No significant clubbing noted. Cardiovascular: Regular rate and rhythm. No murmurs. No edema. Gastrointestinal: Normal bowel sounds, soft, nontender and nondistended. No hepatosplenomegaly noted. Musculoskeletal: No cyanosis. Patient is able to move all extremities. Strength is 5 out of 5 in the upper and lower extremities. Skin: No rashes, warm dry and intact. Neurologic: No obvious focal neurological deficits seen. Psychiatric: Alert and oriented x3 with a euthymic affect. Results & Data Results & Data Vital Signs (Past 12 Hours) Vital Signs Temp Pulse Resp BP Pulse Ox 03/05/24 04:04 36.5 C 03/05/24 03:00 96/56 L 03/05/24 03:00 44 L 13 95 03/05/24 02:09 46 L 15 96 03/05/24 02:00 101/53 L 03/05/24 01:57 43 L 17 97 03/05/24 01:01 111/57 L 03/05/24 01:01 111/57 L 03/05/24 01:00 41 L 21 95 03/05/24 00:03 48 L 17 96 03/05/24 00:02 84/47 L 03/05/24 00:02 84/47 L 03/05/24 00:00 88/44 L 03/04/24 23:57 43 L 16 96 03/04/24 23:03 46 L 16 94 03/04/24 23:01 108/59 L 03/04/24 22:54 44 L 16 94 03/04/24 22:00 36.6 C 03/04/24 22:00 46 L 14 96 03/04/24 22:00 101/64 03/04/24 22:00 101/64 Coding Level of Care Code 50573 SUB INP/OBS CARE 2/35MIN Diagnoses ST elevation myocardial infarction (STEMI) I21.3 Urinary retention R33.9
--- NOTE | 2024-03-05 10:24 | Urology Progress Note ---
Date of Service March 05, 2024 Assessment & Plan (1) Urinary retention: Plan: 68 yo/M admitted to the ICU after [place] s/p stent x 1. He is on dual antiplatelet therapy. Urology was consulted after he developed difficulty voiding/urinary retention. Nursing was unable to place catheter yesterday, but patient was able to void and residual was improved. Patient has been voiding with low residuals overnight Subjectively his voiding is back to his baseline Recommend continue to monitor bladder scans as needed If he develops symptoms of retention and/or high PVRs, we can revisit catheter placement We discussed cystoscopy as an outpatient for evaluation of obstruction/stricture Will arrange outpatient follow-up with our service for further evaluation and management Continue medical management per primary team will sign off, please contact our service with any additional questions or concerns Admission and Anticipated Discharge Date Admission Date: March 04, 2024 Subjective Patient seen and examined at bedside this morning. He reports his voiding is back to his baseline. He feels he is emptying his bladder well. Per nursing, bladder scans overnight showed no residual. No dysuria or hematuria. Review of Systems Constitutional: as per Subjective / HPI Genitourinary: + as per Subjective / HPI Physical Exam Constitutional: well developed and well nourished; no acute distress Respiratory: normal respiratory effort; no respiratory distress and no labored breathing Gastrointestinal (Abdomen): Inspection/Auscultation: abdomen normal to inspection Musculoskeletal: Head/Neck/Chest: normocephalic Neurologic: moves all extremities and awake Psychiatric: Orientation: alert and oriented x 3 Results & Data Vital Signs (Past 12 Hours) Vital Signs Temp Pulse Resp BP Pulse Ox 03/05/24 04:04 36.5 C 03/05/24 03:00 96/56 L 03/05/24 03:00 44 L 13 95 03/05/24 02:09 46 L 15 96 03/05/24 02:00 101/53 L 03/05/24 01:57 43 L 17 97 03/05/24 01:01 111/57 L 03/05/24 01:01 111/57 L 03/05/24 01:00 41 L 21 95 03/05/24 00:03 48 L 17 96 03/05/24 00:02 84/47 L 03/05/24 00:02 84/47 L 03/05/24 00:00 88/44 L 03/04/24 23:57 43 L 16 96 03/04/24 23:03 46 L 16 94 03/04/24 23:01 108/59 L 03/04/24 22:54 44 L 16 94 PG Care Time/CCT Total # of Minutes Spent Total Time Spent with Patient: Total time spent is greater than 50% in coordination of care (as documented) at patient's floor/unit and/or counseling patient: Coding Level of Care Code 44910 SUB INP/OBS CARE 2/35MIN Diagnoses Urinary retention R33.9
[2024-03-05] MEDS: METOPROLOL TARTRATE 25 MG TAB PO SCH (21:33)
--- NOTE | 2024-03-05 23:49 | Cardiology Progress Note ---
Date of Service March 05, 2024 Assessment & Plan (1) CAD (coronary artery disease): Plan: Inferior STEMI COBY latemid RCA 03/04/2024 Residual nonculprit disease, 50% proximal LCx, 75% proximal D3, 90% ostial small left PLB. 2. Preserved LV function 3. Dyslipidemia 4. GERD 5. Mild anemia Doing well from a cardiac standpoint. Chest pain-free. Troponins peaked. Hemodynamically stable. No signs of heart failure on exam. No apparent access site complications. Brief episodes of nonsustained VT. Otherwise sinus bradycardia Continue DAPT with aspirin, ticagrelor Will start low-dose metoprolol Add ARB as BP allows Continue current statin From a cardiac standpoint okay to transfer to telemetry today. If no recurrent ventricular ectopy likely home tomorrow. Follow-up with me in 2 weeks. We discussed cardiac rehab. Admission and Anticipated Discharge Date Admission Date: March 04, 2024 Subjective Seen this morning. Sitting up in chair, feeling well. No chest pain, dyspnea. Telemetry reviewed2 events of nonsustained VT overnight, longest 7 beats. Review of Systems Review of Systems: All systems reviewed & are unremarkable except as noted in HPI & below Physical Exam 2 Physical Exam: General: Comfortable HEENT: Sclerae anicteric Lungs: Clear to auscultation anteriorly Cardiac: Regular rate and rhythm, no murmurs. Vascular: Right radial artery access site with no ecchymosis, hematoma. Distal pulse and sensation intact. Abdomen: Soft, nontender Extremities: Well perfused, no peripheral edema Neuro: Nonfocal Psych: Alert orient x3 Results & Data Vital Signs (Past 12 Hours) Vital Signs Temp Pulse Pulse Resp BP BP Pulse Ox 03/05/24 23:20 52 L 03/05/24 22:30 98.6 F 51 L 18 152/76 H 98 03/05/24 22:00 50 L 17 143/81 H 99 03/05/24 22:00 97.9 F 46 L 16 143/81 H 99 03/05/24 21:00 49 L 18 99 03/05/24 20:03 52 L 20 03/05/24 19:15 46 L 21 99 03/05/24 18:51 51 L 03/05/24 15:43 98.2 F 49 L 16 119/80 98 O2 Del Method 03/05/24 23:20 03/05/24 22:30 Room Air 03/05/24 22:00 Room Air 03/05/24 22:00 Room Air 03/05/24 21:00 03/05/24 20:03 03/05/24 19:15 03/05/24 18:51 03/05/24 15:43 Room Air PG Care Time/CCT Total # of Minutes Spent Total Time Spent with Patient: Total time spent is greater than 50% in coordination of care (as documented) at patient's floor/unit and/or counseling patient: Coding Level of Care Code 30510 SUB INP/OBS CARE 3/50MIN Diagnoses CAD (coronary artery disease) I25.10
--- NOTE | 2024-03-06 00:10 | XCELERA ---
[id number] [id number]
[2024-03-06 03:36] VITALS: O2SAT 96
--- NOTE | 2024-03-06 06:07 | Electrocardiogram Report ---
Test Reason : Blood Pressure : */* mmHG Vent. Rate : 59 BPM Atrial Rate : 59 BPM P-R Int : 214 ms QRS Dur : 94 ms QT Int : 480 ms P-R-T Axes : 85 90 102 degrees QTcB Int : 475 ms Sinus bradycardia with 1st degree A-V block with Premature atrial complexes Rightward axis Septal infarct Inferior injury pattern ACUTE DC / STEMI Consider right ventricular involvement in acute inferior infarct Abnormal ECG When compared with ECG of 04-Nov-2018 16:31, ST elevation now present in Inferior leads Premature ventricular complexes are no longer Present Premature atrial complexes are now Present Confirmed by Jose Ram ([id number]) on 03/06/2024 6:07:11 AM Referred By: REFERRED SELF Confirmed By: Jose Ram
--- NOTE | 2024-03-06 06:36 | Electrocardiogram Report ---
Test Reason : Blood Pressure : */* mmHG Vent. Rate : 54 BPM Atrial Rate : 54 BPM P-R Int : 180 ms QRS Dur : 94 ms QT Int : 482 ms P-R-T Axes : 77 65 87 degrees QTcB Int : 457 ms Sinus bradycardia Septal infarct (cited on or before 08-Jan-2013) Abnormal ECG When compared with ECG of 04-Mar-2024 05:55, Premature atrial complexes are no longer Present LA interval has decreased ST less elevated in Inferior leads Confirmed by Jose Ram ([id number]) on 03/06/2024 6:35:56 AM Referred By: REFERRED SELF Confirmed By: Jose Ram
[2024-03-06 07:00] LABS: Basophils # (auto) 0.06 K/uL (0.00-0.20); Basophils % (auto) 0.7 %; Eosinophils # (auto) 0.43 K/uL (0.00-0.50); Immature Granulocytes # (auto) 0.03 K/uL (0.01-0.20); Immature Granulocytes % (auto) 0.4 %; Lymphocytes # (auto) 1.96 K/uL (1.20-3.40); Mean Corpuscular Hemoglobin 30.8 pg (25.0-34.0); Mean Corpuscular Hgb Conc 33.3 g/dL (32.0-36.0); Mean Corpuscular Volume 92.3 fL (80.0-100.0); Mean Platelet Volume 10.2 fL (9.4-12.4); Monocytes # (auto) 0.88 K/uL (0.11-0.59); Monocytes % (auto) 10.3 %; Neutrophils # (auto) 5.17 K/uL (1.40-6.50); Neutrophils % (auto) 60.6 %; Platelet Count 217 K/uL (130-400); RDW Coefficient of Variation 12.1 % (11.5-14.5); RDW Standard Deviation 41.1 fL (36.4-46.3); Red Blood Count 4.55 M/uL (4.70-6.10); White Blood Count 8.53 K/ul (4.8-10.8)
[2024-03-06 07:28] LABS: BUN Creatinine Ratio 13.7 (10-20); Calcium 9.1 mg/dl (8.6-10.3); Creatinine Clr Calc Pharmacy 59.7 ml/min; Est GFR (African American) 68.3 ml/min; Est GFR (Non-African American) 58.9 ml/min; Phosphorus 3.3 mg/dl (2.5-4.9)
[2024-03-06 07:47] LABS: Ferritin 93.2 ng/ml (8-388)
[2024-03-06 07:49] VITALS: BP 155/75; PULSE 51; RESP 19; TEMP 97.5
[2024-03-06 08:05] LABS: Folate (Folic Acid),Ser orPlas 14.66 ng/ml (>5.38)
--- NOTE | 2024-03-06 09:27 | Cardiology Progress Note ---
Date of Service March 06, 2024 Assessment & Plan (1) CAD (coronary artery disease): Plan: Inferior STEMI COBY latemid RCA 03/04/2024 Residual nonculprit disease, 50% proximal LCx, 75% proximal D3, 90% ostial small left PLB. 2. Preserved LV function 3. Dyslipidemia 4. GERD 5. Sinus bradycardia Feeling well today and ready to go home Chest pain-free this morning. No further ventricular ectopy. BP mildly elevated. Sinus bradycardia persists From a cardiac standpoint okay with discharge today Home on: DAPT with aspirin, ticagrelor Agree with addition of losartan Has not received any metoprolol due to bradycardia. Okay to discontinue Continue current statin Follow-up with me in 2 weeks. We discussed cardiac rehab. Admission and Anticipated Discharge Date Admission Date: March 04, 2024 Subjective Up walking around room. Feeling well. Brief mild chest discomfort last night, resolved on its own. No chest pain, dyspnea this morning. Telemetry reviewedsinus bradycardia. No additional ventricular ectopy Review of Systems Review of Systems: All systems reviewed & are unremarkable except as noted in HPI & below Physical Exam Physical Exam: General: Comfortable HEENT: Sclerae anicteric Lungs: Clear to auscultation Cardiac: Regular rate and rhythm, no murmurs. Vascular: Right radial artery access site with no ecchymosis, hematoma. Distal pulse and sensation intact. Abdomen: Soft, nontender Extremities: Well perfused, no peripheral edema Neuro: Nonfocal Psych: Alert orient x3 Results & Data Vital Signs (Past 12 Hours) Vital Signs Temp Pulse Pulse Resp BP BP Pulse Ox 03/06/24 07:48 97.5 F L 51 L 19 155/75 H 96 03/06/24 03:23 97.9 F 47 L 16 145/75 H 96 03/05/24 23:20 52 L 03/05/24 22:30 98.6 F 51 L 18 152/76 H 98 03/05/24 22:00 50 L 17 143/81 H 99 03/05/24 22:00 97.9 F 46 L 16 143/81 H 99 O2 Del Method 03/06/24 07:48 Room Air 03/06/24 03:23 Room Air 03/05/24 23:20 03/05/24 22:30 Room Air 03/05/24 22:00 Room Air 03/05/24 22:00 Room Air PG Care Time/CCT Total # of Minutes Spent Total Time Spent with Patient: Total time spent is greater than 50% in coordination of care (as documented) at patient's floor/unit and/or counseling patient: Coding Level of Care Code 52780 SUB INP/OBS CARE 2/35MIN Diagnoses CAD (coronary artery disease) I25.10
--- NOTE | 2024-03-06 10:15 | Discharge Summary ---
Discharge Summary Date of Service March 06, 2024 Principal Dx & Hospital Course #1 = Principal Diagnosis (1) ST elevation myocardial infarction (STEMI): (2) Hypothyroidism: (3) Asthma: Plan Mr. Mccarthy is a 68yo M with a PMH of asthma, hypothyroidism, PVCs, GERD, BPH and other medical problems listed below who presented as a heart alert and is s/p PCI COBY x 1. EKG in ED revealed sinus bradycardia at 55 with first-degree AV block, normal axis, normal intervals, and ST elevation in lead III and aVF with T wave inversions/ST depression noted in 1, aVL, V2, and V4 through V6; new compared to prior EKG from 2019. Heart alert was called and Dr. Saldana took to laboratory animal caretaker where patient a single COBY placed to latemid RCA. Patient's post cath course complicated by bradycardia and NSVT. Patient remains admitted for telemetry and medication titration. Patient remained stable on tele for an additional 24 hours. Patient's HR remained in 50s consistently and metoprolol deferred. Patient started on losartan low dose. On day of discharge patient was feeling well without any other concerns. #NSVT #Inferior STEMI/acute 100% latemid RCA occlusion s/p COBY 03/05 #Multivessel coronary artery disease #Transient complete heart block, cardiogenic shock s/p Successful PCI of latemid RCA with single drug-eluting stent Continue asa, Brilinta BID Continue statin Metoprolol deferred 2/2 bradycardia Losartan 12.5mg daily started Cardiology follow up as directed #Normocytic anemia No signs of active bleed encourage robust diet and multivitamin #Asthma Stable, continue home inhalers #GERD Continue PPI Notes For Next Care Provider Medication Changes From Visit Losartan 12.5mg daily ASA 81 mg daily Brilinta 90mg BID Admission HPI Per Admitting Provider This is a 68yo M with a PMH of asthma, hypothyroidism, PVCs, GERD, BPH and other medical problems listed below who presented as a heart alert and is s/p PCI COBY x 1. Developed substernal chest pressure around 4:30am and came to ED for further evaluation. EKG in ED revealed sinus bradycardia at 55 with first-degree AV block, normal axis, normal intervals, and ST elevation in lead III and aVF with T wave inversions/ST depression noted in 1, aVL, V2, and V4 through V6; new compared to prior EKG from 2019. Heart alert was called and Dr. Saldana took to laboratory animal caretaker where patient a single COBY placed to latemid RCA. Evaluated in 109-1 post procedure. Feeling well, without CP, SOB or nausea. No F/C, lightheadedness. Admission Exam Per Admitting Provider General Appearance: WD/WN, vitals as above, NAD, sitting up in bed, pleasant, conversing easily Head: normocephalic, atraumatic Eyes: normal inspection, PERRL, conjunctivae normal, anicteric sclerae ENT: external ear and nose normal, oropharynx normal Neck: normal visual inspection, trachea midline, no thyromegaly Respiratory: normal respiratory effort, lungs clear to auscultation, no wheeze, rales, rhonchi. No accessory muscle use Cardiovascular: regular rate, rhythm, no murmur, normal peripheral pulses, no BLE edema. Vessels: no JVD Chest: normal inspection of chest Abdomen/GI: normal bowel sounds, soft, nontender, no hepatosplenomegaly Extremities/Musculoskeletal: no cyanosis or clubbing, extremities motor strength 5/5, + R radial guard in place, no bleeding Neurologic: PERRL, EOMI, accommodation nl, no face palsy, no dysarthria, CN's II-XI intact bilaterally and moves all extremities Psychiatric: A+Ox3, euthymic affect Skin: no rashes, normal color, warm/dry Discharge Exam Constitutional WD/WN, vitals as above Respiratory normal respiratory effort, lungs clear to auscultation Cardiovascular RRR, no murmur, no edema Gastrointestinal (Abdomen) normal bowel sounds, soft, nontender, no hepatosplenomegaly Updated Medication List Medication Instructions Recorded Confirmed Type famotidine 20 mg tablet (Pepcid) 20 mg PO HS 03/04/24 03/04/24 History fluticasone furoate 100 1 inh inhalation DAILY 03/04/24 03/04/24 History mcg-vilanterol 25 mcg/dose inhalation powder (Breo Ellipta) pantoprazole 40 mg tablet,delayed 40 mg PO DAILY 03/04/24 03/04/24 History release aspirin 81 mg tablet,delayed 81 mg PO QAM #30 tabs 03/06/24 Rx release atorvastatin 40 mg tablet 80 mg (2 x 40 mg) PO QAM #60 tabs 03/06/24 Rx losartan 25 mg tablet 12.5 mg (1/2 x 25 mg) PO QAM #30 03/06/24 Rx tabs ticagrelor 90 mg tablet (Brilinta) 90 mg PO BID #60 tabs 03/06/24 Rx Hospital Stay Data Consultations 03/04/24 08:04 Consult Urologic Nurse Routine 03/04/24 10:24 Consult Cardiology Routine 03/04/24 12:47 Consult Urology Routine Procedures Performed Operation Date: 03/04/24 06:30 Actual Procedures p Cineradiography w/Routine Exam - Germán Saldana MD p Aspiration/PCI w/COBY for Stemi - Germán Saldana MD s Cath, Left with Cors and Vent - Germán Saldana MD Diagnostic Imagining Performed 03/04/24 06:21 CL Cath Imgs for PACS use only Stat Pending Results Patient Have Any Pending Studies at Discharge: No Discharge Instructions Given to Patient (Per Discharging Provider) You were found to have a blockage in your right coronary artery and had a stent placed to open the vessel on 03/04/2024 You were started on medications to help protect your heart. To keep your stent patent, you will need to take aspirin 81mg and Brilinta 90mg two times a day, every day until Cardiology recommends otherwise. These medications will help prevent clot from forming in the stent while it is fresh. These are a must. You were also started on medications to help your blood pressure, as well as protect your heart: -Losartan 12.5mg daily -Atorvastatin 80mg daily Total Time Total Time Spent Total Time Spent (In Minutes): 45
[2024-03-06] MEDS: LOSARTAN POTASSIUM 25 MG TAB PO SCH (11:16)
== END 2024-03-06 15:11 | disposition home or self-care (01) | DRG 321 ==
LOC: ED 05:49 → 1E 06:35 → CC 06:35 → 1E 07:05 → SUATTDRO 07:05 → 4W 03-05 22:50
DX: J45.909 Unspecified asthma, uncomplicated; Z79.51 Long term (current) use of inhaled steroids; E03.9 Hypothyroidism, unspecified; K21.9 Gastro-esophageal reflux disease without esophagitis; I21.19 ST elevation (STEMI) myocardial infarction involving other coronary artery of inferior wall; R39.11 Hesitancy of micturition; D64.9 Anemia, unspecified; I25.10 Atherosclerotic heart disease of native coronary artery without angina pectoris; R35.1 Nocturia; I49.3 Ventricular premature depolarization; R39.12 Poor urinary stream; I44.2 Atrioventricular block, complete; R57.0 Cardiogenic shock; Z79.899 Other long term (current) drug therapy; R33.8 Other retention of urine; N40.1 Benign prostatic hyperplasia with lower urinary tract symptoms; E78.5 Hyperlipidemia, unspecified